=== PATIENT | female | born 1990 ===

== ENCOUNTER 2025-03-29 08:22 | Outpatient (REF) | payer OTHER, SELFPAY ==
--- NOTE | ~2025-03-29 | US_ITS ---
EXAMINATION: US ABDOMEN COMPLETE CLINICAL INFORMATION: Abdominal pain.. COMPARISON: None available. TECHNIQUE: Real-time ultrasound of the abdomen using grayscale technique. FINDINGS: PANCREAS: No peripancreatic fluid collections. ABDOMINAL AORTA: The proximal, mid, and distal segments are normal in caliber. INFERIOR VENA CAVA: Visualized portions are normal. LIVER: Liver measures 15 cm by echocardiography radiology technologist. No nodular contour. Increased echotexture. No gross solid or cystic lesion detected by the technologist. No intrahepatic biliary ductal dilatation. GALLBLADDER: Fluid-filled. No pericholecystic fluid collection or gallbladder wall thickening. COMMON BILE DUCT: 1 mm.. RIGHT KIDNEY: 11 cm. Normal echotexture. Normal renal cortical thickness. No hydronephrosis. No gross solid or cystic lesion. . LEFT KIDNEY: 11 cm. Normal echotexture. Normal renal cortical thickness. No hydronephrosis. Focal 1 cm hyperechoic abnormality at the corticomedullary junction, midportion. . SPLEEN: 10 cm. No focal lesion.. FREE FLUID: None. US/US abdomen complete IMPRESSION: Hepatic steatosis. 1 cm nonobstructing nephrolithiasis, left kidney. No cholelithiasis or choledocholithiasis. No ascites. No hydronephrosis. Electronically signed by: Abelardo Cavazos MD 03/29/2025 11:47 AM EDT
--- OUTSIDE RECORDS SUMMARY | 2025-03-29 08:34 | XMS_ITS | Encounter Summary ---
Author Organization [facility] Address [address] [facility] [address] [place] [phone] Phone Care Team Providers Care Fountain Manager Name Role Phone Shakira Pettit MD Primary Care Provider + Encounter Details Date Type Department Care Team (Latest Contact Info) Description 06/03/2023 Transcribe Orders [facility] [address] [address] Rita [place], [place] [address] [place] [address] Abdominal pain, generalized (Primary Dx); Type 2 diabetes mellitus without complication, without long-term current use of insulin Social History Tobacco Use Types Packs/Day Years Used Date Smoking Tobacco: Never Smokeless Tobacco: Never Alcohol Use Standard Drinks/Week Comments Yes 0 (1 standard drink = 0.6 oz pur e alcohol) 3 weekly Education Answer Date Recorded Are you interested in more education? Not on david e 12/28/2022 Are you concerned about learning? Not on file 12/28/2022 No 12/28/2022 No 12/28/2022 Digital Access Answer Date Recorded No 01/21/2023 No 01/21/2023 Reliable internet access at home? Not on file 01/21/2023 Device with a working camera? Not on file Comments Unknown Sex and Gender Information Value Date Recorded Sex Assigned at Not on file Legal Sex Female 3:34 PM EST Gender Identity Female 09/03/2022 8:28 PM EST Sexual Orientation Straight 09/03/2022 8: 28 PM EST documented as of this encounter Plan of Treatment Upcoming Encounters Date Type Department Care Team (Late st Contact Info) Description 04/11/2025 3:20 PM EDT Office Visit [facility] [address] [place] [address] Kendall Yates DO [address] [place] [address] [email or web address] documented as of this encounter Results * (ABNORMAL) Lipid panel (06/03/2023 3:45 PM EDT) HDL 45 mg/dL [facility] Comment: Interpretation <40 mg/dL: Low HDL cholesterol (major risk factor for CHD) Greater than or equal to 60 mg/dL: High HDL cholesterol ( negative risk factor for CHD) HDL - cholesterol is affected by a number of factors, e.g. smoking, excerise, hormones, sex and age. CHOLESTEROL 143 0 - 240 mg/dL [facility] TRIGLYCERIDES 212(H) 30 - 160 mg/dL [facility] LDL 56 50 - 129 mg/dL [facility] Comment: LDL levels in terms of risk for coronary heart disease: <100 mg/dL: Optimal 100-129 mg/dL: Near or above optimal 130-159 mg/dL: Borderline high 160-189 mg/dL: High >190 mg/dL: Very High CARDIAC RISK RATIO 3.2(L) 3.3 - 4.4 C [facility] Blood 06/03/2023 3:45 PM EDT 06/03/2023 3:51 PM EDT us Rita [facility] BLOOD ORDERABLES Final Result [facility] [address] [place] [address] * (ABNORMAL) Lipase (06/03/2023 3:45 PM EDT) LIPASE 125(H) 16 - 63 U/L [facility] Blood 06/03/2023 3:45 PM EDT 06/03/2023 3:51 PM EDT us Rita [facility] BLOOD ORDERABLES Final Result [address] [address] * (ABNORMAL) Comprehensive metabolic panel (06/03/2023 3:45 PM EDT) SODIUM 139 133 - 146 mmol/L [facility] POTASSIUM 3.9 3.3 - 5.1 mmol/L [facility] CHLORIDE 105 96 - 108 mmol/L [facility] CO2 22 21 - 35 mmol/L [facility] BUN 9 6 - 19 mg/dL [facility] CREATININE 0.60 0.5 - 1.5 mg/dL [facility] GLUCOSE 148(H) 70 - 99 mg/dL [facility] ALBUMIN 4.4 3.9 - 4.8 g/dL [facility] TOTAL PROTEIN 7.2 6.5 - 8.0 g/dL [facility] CALCIUM 9.2 8.4 - 10.3 mg/dL [facility] ALKALINE PHOSPHATASE 53 39 - 117 U/L [facility] TOTAL BILIRUBIN <0.2 0.0 - 1.2 mg/dL [facility] AST 25 0 - 37 U/L [facility] ALT 11 0 - 40 U/L [facility] GLOBULIN 2.8 1 - 4.8 g/dL [facility] EGFR >120 >59 mL/min/1.7 3m2 [facility] Comment:Estimated glomerular filtration rate calculated using the CKD-EPI refit equation. ANION GAP 16 10 - 20 mmol/L [facility] Blood 06/03/2023 3:45 PM EDT 06/03/2023 3:51 PM EDT us Rita [facility] BLOOD ORDERABLES Final Result [address] [address] * (ABNORMAL) CBC (06/03/2023 3:45 PM EDT) WBC 5.86 4.00 - 11.00 K/uL [facility] RBC 4.91 3.72 - 5.30 M/uL [facility] HGB 12.7 10.6 - 15.5 g/dL [facility] HCT 40.7 32.0 - 45.0 % [facility] PLT 234 140 - 430 K/uL [facility] MCV 82.9 78.0 - 97.0 fL [facility] MCH 25.9 25.0 - 33.0 pg [facility] MCHC 31.2(L) 32.0 - 36.0 g/dL [facility] RDW 14.6 11.0 - 16.0 % [facility] MPV 12.1 8.4 - 12.8 fl [facility] Blood 06/03/2023 3:45 PM EDT 06/03/2023 3:51 PM EDT us Rita [facility] BLOOD ORDERABLES Final Result Performing Organization Address [facility] Co de Phone Number [address] [phone] * Tissue transglutaminase IgA (06/03/2023 3:45 PM EDT) TTG IGA ANTIBODY <1.2 <4.0 (Negative) U/mL [facility] Blood 06/03/2023 3:45 PM EDT 06/04/2023 12:28 PM EDT Rita [facility] BLOOD ORDERABLES Final Result [facility] [address] [place] [address] documented in this encounter Visit Diagnoses Diagnosis Abdominal pain, generalized- Primary Type 2 diabetes mellitus without complication, without long-term current use of insulin documented in this encounter Care Teams Fountain Manager Relationship Specialty Start Date End Date Shakira Pettit MD [address] [place] [id number] PCP - General Family Medicine 12/05/22 documented as of this encounter Additional Source Comments The information contained in this document represents components of the legal health record. It is not the complete legal health record.[facility]
== END 2025-03-29 08:23 | disposition home or self-care (01) ==
LOC: HO.UMASIMG 08:22
PROVIDERS: Visit Provider Family Medicine
DX: R10.9 Unspecified abdominal pain (principal); R51.9 Headache, unspecified
CPT/HCPCS: 76700

== ENCOUNTER → 2025-03-29 10:00 | Outpatient (BNV) | payer OTHER, SELFPAY | PROVIDERS: Visit Provider Radiology Diagnostic Radiology | DX: K76.0 Fatty (change of) liver, not elsewhere classified (principal) | CPT/HCPCS: 76700 ==